=== PATIENT | female | born 1990 | race Caucasian/White ===

== ENCOUNTER 2023-04-12 12:45 | Emergency (ER) | payer BC ==
[~2023-04-12] VITALS: Ht 162.6 cm; Wt 65.8 kg
[2023-04-12 12:48] VITALS: BP 138/105; PULSE 115; RESP 18; TEMP 99
== END 2023-04-12 14:04 | disposition left against medical advice (07) ==
LOC: ER 13:39
DX: Z53.21 Procedure and treatment not carried out due to patient leaving prior to being seen by health care provider (principal)
CPT/HCPCS: 99281